=== PATIENT | male | born 1950 | race Caucasian/White ===

== ENCOUNTER 2024-07-19 15:05 | Outpatient (CLI) | payer MEDICARE, OTHER, BC, SELFPAY | END 2024-07-19 15:06 | disposition home or self-care (01) | LOC: NFLDUCREF 15:23 | PROVIDERS: Visit Provider Nurse Practitioner Family | DX: L02.232 Carbuncle of back [any part, except buttock and flank] (principal); B95.7 Other staphylococcus as the cause of diseases classified elsewhere | CPT/HCPCS: 87070; 87186 ==